=== PATIENT | male | born 1950 | race Caucasian/White ===

== ENCOUNTER → 2016-11-12 | Outpatient (CLI) | payer MEDICARE, OTHER ==
[~2016-11-12] MED LIST: ABILIFY5 MG PO; BACTRIM DS 8001 TAB PO; CEPHALEXIN500 M1 PO; FLOMAX 0.40.4 MG/CAP PO; MELOXICAM; MOBIC15 MG PO; PERCOCET 325 MG1 TA2 PO; PERCOCET 5/321 UDTAB PO; ULTRAM 50MG TAB50 MG PO; ZOCOR 80MG80 MG PO; ZOFRAN8 MG PO
== END ==
LOC: BHSO 09:52
DX: F10.20 Alcohol dependence, uncomplicated (principal)

== ENCOUNTER → 2017-07-01 | Outpatient (CLI) | payer MEDICARE, OTHER | LOC: BHSO 09:15 | DX: F43.10 Post-traumatic stress disorder, unspecified (principal) ==

== ENCOUNTER → 2017-08-03 | Outpatient (CLI) | payer MEDICARE, OTHER | LOC: BHSO 09:15 | DX: F43.10 Post-traumatic stress disorder, unspecified (principal) ==

== ENCOUNTER → 2017-09-02 | Outpatient (CLI) | payer MEDICARE, OTHER | LOC: BHSO 10:42 | DX: F43.10 Post-traumatic stress disorder, unspecified (principal) ==

== ENCOUNTER → 2017-11-11 | Outpatient (CLI) | payer MEDICARE, OTHER | LOC: BHSO 10:30 | DX: F43.10 Post-traumatic stress disorder, unspecified (principal) | CPT/HCPCS: G0463 ==

== ENCOUNTER → 2017-12-30 | Outpatient (CLI) | payer MEDICARE, OTHER | LOC: BHSO 14:39 | DX: F43.10 Post-traumatic stress disorder, unspecified (principal) | CPT/HCPCS: G0463 ==

== ENCOUNTER → 2023-10-26 | Outpatient (RCR) | payer MEDICARE, OTHER | END | disposition home or self-care (01) | LOC: COL.CR | DX: I34.0 Nonrheumatic mitral (valve) insufficiency (principal) ==

== ENCOUNTER 2023-11-23 15:38 | Outpatient (RCR) | payer MEDICARE, OTHER | END 2023-11-24 | disposition home or self-care (01) | LOC: COL.CR | DX: Z48.812 Encounter for surgical aftercare following surgery on the circulatory system (principal); Z98.890 Other specified postprocedural states ==

== ENCOUNTER 2024-07-27 17:39 | Emergency (ER) | payer OTHER ==
[~2024-07-27] VITALS: Ht 170.2 cm; Wt 65.9 kg
[2024-07-27 17:44] VITALS: TEMP 99
[2024-07-27 18:12] LABS: HEMATOCRIT 39.3 % (42.0-52.0); HEMOGLOBIN 13.8 g/dl (13.5-18.0); MEAN CELL VOLUME 93 fl (80.0-100.0); MEAN CORPUSCULAR HEMOGLOBIN 33 pg (27-31); MEAN CORPUSCULAR HGB CONC 35 g/dl (33.0-37.0); MEAN PLATELET VOLUME 9.4 fl (7.4-10.4); PLATELET COUNT 198 K/mm3 (130-400); RED BLOOD COUNT 4.24 M/mm3 (4.20-5.60); REDCELL DISTRIBUTION WIDTH-CV 13.1 % (11.5-14.5)
[2024-07-27] MEDS ORDERED: NS 1,000 ML IV ONE ×2 (18:15→20:45)
[2024-07-27 18:30] LABS: ALBUMIN 3.5 g/dL (3.4-4.8); BILIRUBIN,TOTAL 0.9 mg/dL (0.2-1.2); CALCIUM 8.5 mg/dL (8.4-10.2); CREATININE, serum 0.86 mg/dL (0.72-1.25); POTASSIUM 3.7 mEq/L (3.5-4.5); TOTAL PROTEIN 6.4 g/dl (6.2-8.1)
[2024-07-27 18:41] LABS: TROPONIN-I 0.061 ng/mL (0.00-0.033)
[2024-07-27 18:43] LABS: ANISOCYTOSIS 1+; BAND 11 % (0-10); LYMPHOCYTE 7 % (20.0-51.0); NEUTROPHILS 82 % (42.0-75.2); POLYCHROMASIA 1+
[2024-07-27 18:44] LABS: PLATELET ESTIMATE NORMAL (NORMAL)
[2024-07-27 19:20] LABS: COLLECTION METHOD CLEAN CATCH
[2024-07-27 19:32] LABS: PH 6.5 (5.0-8.5); URINE APPEARANCE CLOUDY (CLEAR/HAZY); URINE BLOOD TRACE (NEGATIVE); URINE COLOR YELLOW (YELLOW); URINE GLUCOSE NEGATIVE (NEGATIVE); URINE KETONE TRACE (NEGATIVE); URINE NITRATE POSITIVE (NEGATIVE); URINE PROTEIN(semi-quant) TRACE (NEGATIVE)
[2024-07-27] MEDS ORDERED: Heparin 5,000 UNITS/ML 1 ML VIAL IV PRN (20:15)
[2024-07-27] MEDS ORDERED: Heparin 5,000 UNITS/ML 1 ML VIAL IV ONE (20:15)
[2024-07-27] MEDS ORDERED: Heparin/D5W 250 ML IV SCH (20:21)
[2024-07-27 21:06] LABS: PROTHROMBIN TIME 10.8 SECONDS (9.7-12.8)
[2024-07-27 22:56] VITALS: BP 116/67; PULSE 93
== END 2024-07-27 23:00 | disposition short-term general hospital (02) ==
LOC: COL.ER 17:39
PROVIDERS: Physician Assistant
DX: I21.4 Non-ST elevation (NSTEMI) myocardial infarction (principal); C61 Malignant neoplasm of prostate; C79.51 Secondary malignant neoplasm of bone; R79.89 Other specified abnormal findings of blood chemistry; Z96.82 Presence of neurostimulator
CPT/HCPCS: J1644; J7030